=== PATIENT | female | born 1980 | race Hispanic/Latino ===

== ENCOUNTER 2022-05-10 06:20 | Inpatient (IN) | payer MEDICAID ==
--- NOTE | 2022-05-09 07:38 | History and Physical Report ---
History of Present Illness Date of examination: 05/04/22 Chief complaint: Previous delivery, desires repeat delivery History of present illness: IUP@39 weeks,AMA, BMI 47, GDM. Previous delivery, desires repeat delivery EDC Confirmation: 05/17/2022 Gestational Age: 12 3/7 weeks Past History : 2 Term Births: 1 Premature Births: 0 Living Children: 1 Para: 1 Mult. Births: 0 Prev : 1 Prev. attempt? 0 Aborta: 1 Elect. Ab: 1 Spont. Ab: 0 Ectopics: 0 # 1 Delivery date: 07/23/2020 Weeks Gestation: 40 Delivery type: Hours of labor: 30 Anesthesia type: general Delivery location: [facility] Sex: female weight: 9.69 Comments: No care/macrosomia/ failed induction/fever Past Medical History: Reviewed history from 07/20/2020 and no changes required: Obesity Past Surgical History: Reviewed history from 07/23/2020 and no changes required: (07/23/2020) Family History Summary: Reviewed history and no changes required: 11/05/2021 General Comments - FH: Bladder CA- father (passed) unknown CA - mothe (passed Social History: Reviewed history from 07/20/2020 and no changes required: Single Denies ETOH/smoking/drugs no pets Risk Factors: Smoked Tobacco Use: Never smoker Smokeless Tobacco Use: Never Counseled to Quit/Cut Down: yes Passive Smoke Exposure: no HIV High Risk Behavior: no Caffeine Use: 0 drinks per day Exercise: no Exercise Counseling: yes Seatbelt Use: preg-sexual assault counsellor % Family History Risk Factors: Family History of WA in 1 Female Relative Age < 65: no Family History of WA in 1 Male Relative Age < 55: no Dietary Counseling: yes Alcohol Use: no Drug Use: no Past Medical History Anesthesia Complications: negative Anemia: negative Autoimmune Disorder: negative Bleeding Disorder: negative Blood Transfusions: negative Breast Disease: negative Diabetes: negative Heart Disease: negative Hypertension: negative Hepatitis/Liver Disease: negative Kidney Disease/UTI: negative Neurologic/Epilepsy/Migraines: negative Phlebitis/Varicosities: negative Psychiatric: negative Pulmonary Disease/Asthma: negative Thyroid Disease: negative Surgery (Non-video camera operator): (07/23/2020) Abnormal PAP: negative WHITNEY Exposure: negative Infertility: negative Uterine Anomaly: negative Uterine Surgery (not C/S): negative Other Gynecologic Problems: negative Social Hx: Single Denies ETOH/smoking/drugs no pets Infection History Hx of STD: none HIV Risk Eval: no Hepatitis B Risk Eval: low risk Personal hx. of genital herpes: no Partner hx. of genital herpes: no Rash, Viral, or Febrile illness since last LMP? no Varicella/Chicken Pox Status: Previous Disease TB Risk: no Genetic History ADVANCED MATERNAL AGE Congenital Heart Defect: Mom: no Dad: no Ruby Disease: Mom: no Dad: no Thalassemia Mom: no Dad: no Neural Tube Defect Mom: no Dad: no Down's Syndrome Mom: no Dad: no Allen-Sachs Mom: no Dad: no Sickle Cell Disease/Trait Mom: no Dad: no Hemophilia Mom: no Dad: no Muscular Dystrophy Mom: no Dad: no Cystic Fibrosis Mom: no Dad: no [place] Chorea Mom: no Dad: no Mental Retardation Mom: no Dad: no Fragile X Mom: no Dad: no Other Genetic/Chromosomal Disorder Mom: no Dad: no Child w/other defect Mom: no Dad: no Enviromental Exposures Enviromental Exposures Reviewed Xray Exposure: no Medication, drug, or alcohol use since LMP: no Chemical/Other Exposure: no Exposure to Cat Liter: no Hx of Parvovirus (Fifth Disease): no Occupational Exposure to Children: none Current Allergies (reviewed today): No known allergies Physical Exam General appearance: well nourished, healthy appearing, no distress Chest/Lungs: respiratory effort normal, lungs clear to auscultation Cardiovascular: normal rate and rhythm Abdomen/GI: soft, nontender HBsAg Screen Negative Negative *1 RPR Non Reactive Non Reactive *2 Rubella Antibodies, IgG 1.43 index Immune >0.99 *3 Non-immune <0.90 Equivocal 0.90 - 0.99 Immune >0.99 ABO Grouping A *4 Rh Factor Positive *5 Please note: Prior records for this patient's ABO / Rh type are not available for additional verification. Antibody Screen Negative Negative *6 WBC [H] 11.2 x10E3/uL 3.4-10.8 *7 RBC 4.03 x10E6/uL 3.77-5.28 *8 Hemoglobin 11.8 g/dL 11.1-15.9 *9 Hematocrit 37.0 % 34.0-46.6 *10 MCV 92 fL 79-97 *11 MCH 29.3 pg 26.6-33.0 *12 MCHC 31.9 g/dL 31.5-35.7 *13 RDW 13.4 % 11.7-15.4 *14 Platelets 230 x10E3/uL 150-450 *15 Neutrophils 73 % Not Estab. *16 Lymphs 21 % Not Estab. *17 Monocytes 6 % Not Estab. *18 Eos 0 % Not Estab. *19 Basos 0 % Not Estab. *20 ! Immature Cells <No Reported Value> *21 Neutrophils (Absolute) [H] 8.1 x10E3/uL 1.4-7.0 *22 Lymphs (Absolute) 2.4 x10E3/uL 0.7-3.1 *23 Monocytes(Absolute) 0.6 x10E3/uL 0.1-0.9 *24 Eos (Absolute) 0.0 x10E3/uL 0.0-0.4 *25 Baso (Absolute) 0.0 x10E3/uL 0.0-0.2 *26 ! Immature Granulocytes 0 % Not Estab. *27 ! Immature Grans (Abs) 0.0 x10E3/uL 0.0-0.1 *28 ! NRBC <No Reported Value> *29 Hematology Comments: <No Reported Value> *30 Tests: (2) AFP Tetra ([id number]) ! Results Report *31 ! Test Results: *Screen Negative* *32 ! Gest. Age on Collection Date 16.9 WEEKS *33 ! Gestat. Age Based On IVETH *34 05/17/2022 ! Maternal Age [age] IVETH 42.1 yr *35 ! Race *36 ! Weight 319 lbs *37 ! Insulin Dep Diabetes No *38 ! Multiple Gestation No *39 ! AFP Value 32.1 ng/mL *40 ! AFP MoM 1.25 *41 ! hCG Value 98591 mIU/mL *42 ! hCG MoM 0.88 *43 ! uE3 Value 1.35 ng/mL *44 ! uE3 MoM 1.44 *45 ! SUZETTE Value 124.59 pg/mL *46 ! SUZETTE MoM 1.22 *47 ! OSBR Risk 1 IN 5576 *48 ! DSR (Second Trimester) 1 IN 578 *49 ! DSR (By Age) 1 IN 65 *50 ! T18 Risk Not increased *51 ! T18 (By Age) 1:254 *52 ! Interpretation NL42 *53 Interpretation: Screen Negative This result is screen negative for OSB, Down Syndrome and Trisomy 18. The AFP MoM and patient specific risks calculated are based on the gestational age and the clinical information provided. This test can identify up to 80% of open neural tube defects. Closed neural tube defects and some open defects may not be detected by this test. The combination of maternal age, AFP, hCG, uE3, and SUZETTE identifies 75-80% of Down Syndrome. The combination of maternal age, AFP, hCG and uE3 identifies 60% of Trisomy 18 pregnancies. The [employer] recommends amniocentesis be offered to women age 35 and older. Recalculations are not recommended when gestational dating by LMP and ultrasound are within 10 days. ! Comments: SPRCS *54 Mayra Peña, Ph.D., [facility] Director References: Available Upon Request. Multiples Of Median Cutoffs Abbreviation Definitions For AFP Elevations IDD- Insulin Dep Diabetes Browning 2.5 Black 2.8 OSBR- Open Spina Bifida IDD 2.0 Twins 4.5 Risk DSR Cutoff 1:270 DSR- Down Syndrome Risk T18 Cutoff 1:100 T18- Trisomy 18 Down Syndrome and Trisomy 18 screening are considered Investigational For further inquiries contact [facility] at [phone]. Tests: (3) HB Solu + Rflx Fra ([id number]) Hemoglobin (Hgb) Solubility Negative Negative *55 Tests: (4) HIV Ab/p24 Ag with Reflex ([id number]) HIV Ab/p24 Ag Screen Non Reactive Non Reactive *56 HIV Negative HIV-1/HIV-2 antibodies and HIV-1 p24 antigen were NOT detected. There is no laboratory evidence of HIV infection. Tests: (5) HCV Antibody reflex to LARRY ([id number]) HCV Ab <0.1 s/co ratio 0.0-0.9 *57 Tests: (6) Interpretation: ([id number]) ! Interpretation: SPRCS *58 Negative Not infected with HCV, unless recent infection is suspected or other evidence exists to indicate HCV infection. Effective January 03, 2022 HCV Antibody reflex to LARRY will be made non-orderable. This will affect any Custom Profile that includes [id number] HCV Antibody reflex to LARRY. [employer] offers order code [id number] HCV Antibody RFX to Quant PCR as an alternative. 04/19/2022 Chlamydia by LARRY Negative Negative *1 Gonococcus by LARRY Negative Negative *2 Trich vag by LARRY Negative Negative *3 Tests: (2) Strep Gp B LARRY ([id number]) ! Strep Gp B LARRY Negative Past History - Obstetrical History : 2 Medications and Allergies Allergies Allergy/AdvReac Type Severity Reaction Status Date / Time No Known Allergies Allergy Verified 05/03/22 16:53 Home Medications Medication Instructions Recorded Confirmed Last Taken Type Acetaminophen [Tylenol Extra 1,000 mg PO Q6HR PRN 05/03/22 05/03/22 Unknown History Strength] Aspirin [Aspirin BABY CHEW TAB] 81 mg PO QDAY 05/03/22 05/03/22 Unknown History Famotidine [Pepcid] 20 mg PO BID 05/03/22 05/03/22 Unknown History Vit-Fe Fumar-FA [ 1 tab PO QDAY 05/03/22 05/03/22 Unknown History Vitamin] Active Meds: Active Medications Citric Acid/Sodium Citrate (Bicitra Oral Liqd 30ml) 30 ml PO ONCE ONE Stop: 05/10/22 07:31 Famotidine (Famotidine 20 Mg/2 Ml Inj) 20 mg IV ONCE ONE Stop: 05/10/22 07:31 Lactated Ringer's (Lactated Ringers) 1,000 mls @ 2,250 mls/hr IV PREOP LARRY Stop: 05/11/22 05:57 Oxytocin/Sodium Chloride (Pitocin/Ns 30 Unit/500ml) 30 units in 500 mls @ 0 mls/hr IV TITR LARRY; Protocol Cefazolin Sodium (Ancef/Sterile Water 2 Gm/20 Ml) 2 gm in 20 mls @ 80 mls/hr IV PREOP NR; Protocol Stop: 05/10/22 23:45 Metoclopramide HCl (Metoclopramide 10 Mg/2 Ml Inj) 10 mg IV ONCE ONE Stop: 05/10/22 07:31 Results All other labs normal. Assessment and Plan - Patient Problems (1) 39 weeks gestation of Status: Acute (2) Previous delivery affecting Status: Acute Plan to address problem: Consent reviewed and signed . The risks and alternatives for this surgery were reviewed with the patient. She was informed of possible bleeding, infection, injury to bowel, bladder, ureters or other adjacent organs. The patient was instructed/informed the following: The normal length of hospital stay for this procedure. Nothing to eat or drink after midnight the evening prior to surgery. Pre-op instruction sheets given. Wound care instructions given. Infection precautions reviewed, patient to call for any signs or symptoms of infection. The usual discomforts associated with this procedure were detailed. Proper use of pain medicines was reviewed. Patient was given ample opportunity to have all her questions answered before signing informed consent (3) Gestational diabetes Status: Acute (4) BMI 45.0-49.9, adult Onset Date: ~07/20/20 Status: Chronic (5) Polyhydramnios in third trimester Status: Acute (6) Advanced maternal age (AMA), 40 years or greater Status: Chronic
[~2022-05-10 06:20] MED LIST: LACTATED RINGERS 1,000 ML IV SCH; OXYTOCIN DRIP 30 UNITS/500 ML BAG IV SCH
[2022-05-10] MEDS ORDERED: ceFAZolin/Water 2 GM/20 ML 2 GM/20 ML SYRINGE IV NR (06:30)
[2022-05-10] MEDS ORDERED: NALOXONE 0.4 MG/1 ML INJ IV PRN (06:36)
[2022-05-10] MEDS ORDERED: ONDANSETRON 4 MG/2 ML INJ IV PRN (06:36)
[2022-05-10] MEDS ORDERED: HYDROmorphone 1 MG/1 ML INJ IV PRN (06:36)
[2022-05-10] MEDS ORDERED: PROMETHAZINE 25 MG RECT SUPP PR PRN (06:36)
[2022-05-10] MEDS ORDERED: PROMETHAZINE 25 MG TAB PO PRN (06:36)
[2022-05-10] MEDS ORDERED: NalbUPHINE 10 MG/1 ML INJ IV PRN (06:36)
[2022-05-10] MEDS ORDERED: diphenhydrAMINE 50 MG/ML VIAL IV PRN (06:36)
[2022-05-10] MEDS ORDERED: KETOROLAC 30 MG/1 ML INJ ONE (06:50)
[2022-05-10] MEDS ORDERED: ONDANSETRON 4 MG/2 ML INJ ONE (06:50)
[2022-05-10] MEDS ORDERED: BUPIVACAINE/PF (0.5%) 5 MG/1 ML 30 ML VIAL INFILTRATI ONE (06:50)
[2022-05-10] MEDS ORDERED: FAMOTIDINE 20 MG/2 ML INJ IV ONE (07:30)
[2022-05-10] MEDS ORDERED: METOCLOPRAMIDE 10 MG/2 ML INJ IV ONE (07:30)
[2022-05-10] MEDS ORDERED: BICITRA ORAL LIQD 30ML PO ONE (07:30)
--- NOTE | 2022-05-10 07:44 | Event Note ---
Date: 05/10/22 Patient presented for surgery late, also has her 1 year-old child with her. Per policy according to [employer] real estate development manager, is unable to stay with patient with a one year old child. Patient states she's unable to make arrangements today for childrens club attendant. Will reschedule C/S garcía. Labor precautions given ,encourage FKC. Informed the office will call to reschedule garcía
[2022-05-15] MEDS ORDERED: LACTATED RINGERS 1,000 ML IV SCH (09:45)
[2022-05-16] MEDS ORDERED: BICITRA ORAL LIQD 30ML PO ONE (07:00)
[2022-05-16] MEDS ORDERED: FAMOTIDINE 20 MG/2 ML INJ IV ONE (07:00)
[2022-05-16] MEDS ORDERED: METOCLOPRAMIDE 10 MG/2 ML INJ IV ONE (07:00)
[2022-05-16] MEDS ORDERED: OXYTOCIN DRIP 30 UNITS/500 ML BAG IV SCH ×2 (08:00→18:00)
[2022-05-16 08:01] LABS: Basophils % (Auto) 0.3 % (0.0-1.8); Eosinophils % (Auto) 0.2 % (0.0-4.3); Hematocrit 33.8 % (30.3-42.9); Hemoglobin 10.7 gm/dl (10.1-14.3); Lymphocytes # (Auto) 1.7 K/mm3 (1.2-5.4); Lymphocytes % (Auto) 19.6 % (13.4-35.0); Mean Corpuscular HGB Conc 32 % (30-34); Mean Corpuscular Volume 91 fl (79-97); Monocytes # (Auto) 0.6 K/mm3 (0.0-0.8); Monocytes % (Auto) 6.7 % (0.0-7.3); Platelet Count 172 K/mm3 (140-440); Red Blood Count 3.72 M/mm3 (3.65-5.03)
[2022-05-16] MEDS ORDERED: CARBOPROST TROMETHAMINE 250 MCG/1 ML INJ IM ONE (08:51)
[2022-05-16] MEDS ORDERED: miSOPROStol 200 MCG TAB ONE (08:51)
[2022-05-16] MEDS ORDERED: METHYLERGONOVINE MALEATE 0.2 MG/ML VIAL IM ONE (08:51)
[2022-05-16] MEDS ORDERED: ePHEDrine SULFATE 50 MG/1 ML INJ ONE (09:47)
[2022-05-16] MEDS ORDERED: SODIUM CHLORIDE 0.9% 100 ML ONE (09:47)
[2022-05-16] MEDS ORDERED: PHENYLEPHRINE/NS 1,000 MCG/10 ML SYRINGE (OR USE) IV ONE (09:47)
[2022-05-16] MEDS ORDERED: ONDANSETRON 4 MG/2 ML INJ ONE (09:47)
[2022-05-16] MEDS ORDERED: BUPIVACAINE/PF (0.5%) 5 MG/1 ML 30 ML VIAL INFILTRATI ONE (09:47)
[2022-05-16] MEDS ORDERED: MORPHINE 4 MG/1 ML INJ IV PRN (12:07)
[2022-05-16] MEDS ORDERED: PROMETHAZINE 25 MG TAB PO PRN (12:07)
[2022-05-16] MEDS ORDERED: ONDANSETRON 4 MG/2 ML INJ IV PRN ×2 (12:07→18:00)
[2022-05-16] MEDS ORDERED: NALOXONE 0.4 MG/1 ML INJ IV PRN ×2 (12:07→18:00)
[2022-05-16] MEDS ORDERED: PROMETHAZINE 25 MG RECT SUPP PR PRN (12:07)
[2022-05-16] MEDS ORDERED: HYDROmorphone 1 MG/1 ML INJ IV PRN ×2 (12:07)
--- NOTE | 2022-05-16 12:09 | Anesthesia Day of Surgery ---
Anesthesia Day of Surgery - Day of Surgery Patient Examined: Yes Patient H&P Reviewed: Yes Patient is NPO: Yes Beta Blockers: No Cardiac Clearance: No Pulmonary Clearance: No Seb's Test: N/A
--- NOTE | 2022-05-16 12:09 | Anesthesia Consultation ---
Anesthesia Consult and Med Hx Date of service: 05/16/22 - Airway Anesthetic Teeth Evaluation: Good ROM Head & Neck: Adequate Mental/Hyoid Distance: Adequate Mallampati Class: Class II Intubation Access Assessment: Probably Good - Pulmonary Exam CTA: Yes - Cardiac Exam Cardiac Exam: RRR - Pre-Operative Health Status ASA Pre-Surgery Classification: ASA3 Proposed Anesthetic Plan: Spinal Nerve Block: Tony Tap - Pulmonary Hx Smoking: No Hx Asthma: No Hx Respiratory Symptoms: No SOB: No COPD: No Hx Pneumonia: No Hx Sleep Apnea: No - Cardiovascular System Hx Hypertension: No Hx Coronary Artery Disease: No Hx Heart Attack/AMI: No Hx Angina: No Hx Percutaneous Transluminal Coronary Angioplasty (PTCA): No Hx Cardia Arrhythmia: No Hx Pacemaker: No Hx Internal Defibrillator: No Hx Valvular Heart Disease: No Hx Heart Murmur: No Hx Peripheral Vascular Disease: No - Central Nervous System Hx Neuromuscular Disorder: No Hx Seizures: No CVA: No Hx Back Pain: Yes (DUE TO ) Hx Psychiatric Problems: Yes - Gastrointestinal Hx Ulcer: No Hx Gastroesophageal Reflux Disease: Yes - Endocrine Hx Renal Disease: No Hx End Stage Renal Disease: No Hx Cirrhosis: No Hx Liver Disease: No Hx Insulin Dependent Diabetes: No Hx Non-Insulin Dependent Diabetes: No Hx Thyroid Disease: No Hx Hypothyroidism: No Hx Hyperthyroidism: No - Hematic Hx Anemia: No Hx Sickle Cell Disease: No - Other Systems Hx Alcohol Use: No Hx Substance Use: No Hx Cancer: No Hx Obesity: Yes
--- NOTE | 2022-05-16 12:10 | Progress Note ---
Spinal Anesthesia Block - Spinal Anesthesia Block Start Time: 10:04 Stop Time: 10:10 Performed by:: JENNIFER MOREAU Procedure: The patient was placed in a sitting position on the OR table and monitors applied. A timeout was performed immediately prior to the start of the procedure. The patient was Prepped and draped in a sterile fashion and the skin was localized with 3 mL 1% lidocaine at L[4]-L[5] interspace. An introducer was placed into the back between L4-L5 and a 25g spinal needle was advanced into the intrathecal space until clear, free flowing CSF was observed. 1.8cc of 0.75% hyperbaric bupivacaine + 0.5mcg Precedex was injected into the intrathecal space and the spinal needle was removed. The patient tolerated the procedure well and there were no immediate complications noted.
--- NOTE | 2022-05-16 12:11 | Progress Note ---
Regional Anesthesia Block - Regional Anesthesia Block Start Time: 11:49 Stop Time: :56 Performed By:: JENNIFER MOREAU Procedure: During the pre-op interview the patient agreed to and signed a consent for a TAP block for post surgical pain management. After her C/S was completed a time out was performed prior to the start of the procedure. The Trans Abdominal Plane was identified bilaterally via ultrasound. The skin was prepped bilaterally with chlorhexidine and a 22g stimuplex needle was advanced to the area between the internal oblique muscle and the trans abdominal plane. Marcaine 0.25% 30mlwas injected under ultrasound guidance on the left and right side. Negative aspiration every 5mL, There was no change in the patients heart rate or rhythm and the patient tolerated the procedure well. No apparent complications were observed.
[2022-05-16] MEDS ORDERED: ACETAMINOPHEN 325 MG TAB PO PRN (18:00)
[2022-05-16] MEDS ORDERED: SIMETHICONE 80 MG CHEW TAB PO PRN (18:00)
[2022-05-16] MEDS ORDERED: WITCH HAZEL/ GLYCERIN PAD TP PRN (18:00)
[2022-05-16] MEDS ORDERED: LANOLIN/ZINC/DIMETHICONE (LANSINOH) 7 GM TP PRN (18:00)
[2022-05-16] MEDS ORDERED: LACTATED RINGERS 1000 ML IV SOLN IV SCH (18:15)
--- NOTE | 2022-05-16 18:55 | Operative Report ---
Operative Report Operative Report: Date of procedure: May 16, 2022 Pre-operative diagnosis: Intrauterine at 39 weeks with previous section, gestational diabetes and morbid obesity Post-operative diagnosis: Same Procedure name(s): Repeat low-transverse section Surgeon: Dean Lang MD Financial Services Rep: MARLY Anesthesia: Epidural EBL: Quantitative blood loss 778 cc Complications: None Findings: Patient with normal uterus tubes and ovaries bilaterally. Female infant weight 9 pounds 1 ounce Apgars 9 at 1 minute and 9 at 5 minutes Specimen(s): None Procedure: The patient was brought to the operating room. A spinal was placed without any complications. She was then placed in left lateral tilt. Abdomen was taped to lift up her panniculus. Then prepped and draped in the usual sterile manner. After testing for adequate anesthesia level, a Pfannenstiel incision was made through her previous scar. This incision was taken down to the fascia through a large amount of adipose tissue. The fascia was then nicked in the midline. This incision was extended out laterally with Motta scissors. The fascia was then sharply and bluntly from the underlying rectus muscles. The rectus muscles were bluntly and sharply . The peritoneum was then entered with the production machine operator's fingers. This incision was spread vertically with care not to damage the bladder below. The Ollie self-retaining tractor was then placed without any difficulty The bladder flap was then formed sharply and bluntly with Metzenbaum scissors. . A transverse incision was made in lower uterine segment. This incision was extended laterally with the operators fingers. The amniotic sac was then entered bluntly with the production machine operator's fingers. The infant was delivered from the vertex position with assistance of the vacuum. The infant was bulb suction on the mother's abdomen. Cord was double clamped and cut after minute. The was then passed to the nursery personnel who were in attendance. The above scores were given by the nursery personnel. The placenta was then bluntly removed. The uterus was then externalized and wiped clean the remaining products. The uterine incision was closed in layers. The first incision was closed in a locking manner using 0 Vicryl. This was followed by imbricating stitch also with 0 Vicryl. This closure was hemostatic. The bladder flap was copiously irrigated and found to be hemostatic. The pelvis was copiously irrigated and found to be hemostatic. The uterus was then placed back to the patient's abdomen. The retractors were removed. The rectus muscles were inspected and found to be hemostatic. The fascia was then closed in a running manner using 0 Vicryl. This incision was hemostatic irrigation Bovie. The space was closed with interrupted Vicryl sutures. The skin was reapproximated with 4-0 Vicryl subcuticularly. Dermabond was placed along the skin closure. The patient tolerated procedure well. Her urine was clear. The infant was admitted to the well baby nursery. The patient was accompanied to recovery room in good condition. Instrument count correct x3
[2022-05-16] MEDS: KETOROLAC 30 MG/1 ML INJ IV SCH (19:55)
[2022-05-16] MEDS: ceFAZolin/NS 1 GM/50 ML 1 GM/50 ML BAG IV SCH (20:07)
[2022-05-16] MEDS ORDERED: HYDROCORTISONE 25 MG RECTAL SUPP PR PRN (22:00)
[2022-05-16] MEDS ORDERED: MAGNESIUM HYDROXIDE (MOM) ORAL LIQD UDC PO PRN (22:00)
[2022-05-16] MEDS ORDERED: SENNOSIDES 8.6 MG TAB PO PRN (22:00)
[2022-05-16] MEDS: FAMOTIDINE 20 MG TAB PO SCH (23:50)
[2022-05-17 01:13] LABS: Hematocrit 33.9 % (30.3-42.9); Hemoglobin 10.7 gm/dl (10.1-14.3)
[2022-05-17] MEDS: KETOROLAC 30 MG/1 ML INJ IV SCH (03:14)
[2022-05-17] MEDS: ceFAZolin/NS 1 GM/50 ML 1 GM/50 ML BAG IV SCH (04:14)
[2022-05-17] MEDS ORDERED: IBUPROFEN 600 MG TAB PO PRN (06:00)
--- NOTE | 2022-05-17 08:50 | Progress Note ---
Assessment and Plan Continue post-op pathway, consider discharge tomorrow 05/18. Patient encouraged to ambulate and RN to apply abdominal binder. - Patient Problems (1) delivery delivered Current Visit: Yes Status: Acute (2) BMI 45.0-49.9, adult Onset Date: ~07/20/20 Current Visit: Yes Status: Chronic Subjective - Subjective Date of service: 05/17/22 Principal diagnosis: s/p repeat Patient reports: appetite normal, voiding normally, pain well controlled, flatus, ambulating normally : doing well, bottle feeding Objective - Vital Signs Latest vital signs: Vital Signs Temp Pulse Resp BP BP Pulse Ox Pulse Ox 05/17/22 05:19 98.7 F 78 18 124/61 96 05/17/22 00:58 98.6 F 87 18 140/76 97 05/16/22 20:50 99 05/16/22 20:20 97.5 F L 80 18 122/65 97 05/16/22 17:08 97.9 F 88 14 123/70 99 100 05/16/22 15:40 98.8 F 78 24 107/59 94 05/16/22 09:52 90 98 05/16/22 09:47 77 97 05/16/22 09:42 84 98 05/16/22 09:37 76 97 05/16/22 09:32 89 97 05/16/22 09:27 88 99 05/16/22 09:22 75 98 05/16/22 09:17 79 97 05/16/22 09:12 91 H 97 05/16/22 09:07 86 98 05/16/22 09:02 78 99 05/16/22 08:57 77 98 05/16/22 08:52 75 97 05/16/22 08:47 81 98 Intake and Output 05/16/22 05/17/22 05/17/22 23:59 07:59 15:59 Intake Total 50 240 Output Total 900 400 Balance -850 -160 Intake: IV 50 ANCEF/NS 1 GM/50 ML 1 gm 50 In 50 ml @ 100 mls/hr IV Q8H [facility] Rx#:[id number] Intake, Free Water 240 Output: Urine 900 400 Indwelling Catheter 500 Uretheral (Savage) 400 Void 400 Other: Total, Output Amount 400 400 - Exam Narrative Exam: POD #1, pt ambulating occasionally, passing flatus, regular diet this AM. Repo rts pain well controlled this morning. Bottle feeding. Incision clean and dry, well approximated. Breasts: Present: normal Cardiovascular: Present: Regular rate Lungs: Present: Clear to auscultation Abdomen: Present: normal appearance, soft, normal bowel sounds Uterus: Present: normal, firm Extremities: Present: normal Deep Tendon Reflex Grade: Normal +2 Incision: Present: normal, dry, intact - Labs Labs: Post Op H&H 10.3/33.7
--- NOTE | 2022-05-17 10:10 | Post Anesthesia Evaluation ---
- Post Anesthesia Evaluation Patient Participated: Yes Airway Patent: Yes Stable Respiratory Function: Yes Nausea/Vomiting: No Temp > 96.8F: Yes Pain Manageable: Yes Adequeate Hydration: Yes Anesthesia Complications: No Block Receding Appropriately: Yes Patient on Ventilator: No
[2022-05-17] MEDS: FERROUS SULFATE 325 MG TAB PO SCH (10:34)
[2022-05-17] MEDS: PRENATAL VIT27-FE FUMARATE-FOLIC ACID VIT TAB PO SCH (10:34)
[2022-05-17] MEDS: FAMOTIDINE 20 MG TAB PO SCH (10:34)
[2022-05-17] MEDS: oxyCODONE /ACETAMINOPHEN 5-325MG TAB PO PRN (10:34)
[2022-05-17] MEDS ORDERED: MEASLES, MUMPS & RUBELLA 12,500 UNIT/0.5 ML VACCINE SUB-Q ONE (13:00)
[2022-05-17] MEDS ORDERED: TETANUS,DIPH,PERTUSS(ACELL) VACCINE 0.5 ML SYRINGE IM ONE (13:00)
[2022-05-18] MEDS: FAMOTIDINE 20 MG TAB PO SCH ×2 (02:08→10:12)
[2022-05-18] MEDS: oxyCODONE /ACETAMINOPHEN 5-325MG TAB PO PRN ×2 (02:09→10:12)
--- NOTE | 2022-05-18 08:57 | Discharge Summary ---
Providers - Providers Date of Admission: 05/16/22 06:05 Date of discharge: 05/18/22 Attending physician: REINA DODGE MD 05/16/22 17:07 Consult to Rubber Factory Worker [CONS] Routine Reason For Exam: Primary care physician: ТАТЬЯНА HOOD Hospitalization Reason for admission: section Procedure: repeat low transverse Episiotomy: none Laceration: none Incision: normal, dry, intact Other procedures: none complications: none Discharge diagnosis: IUP at term delivered baby: female Hospital course: S: Patient doing well. Voiding, ambulating, passing flatus okay. O: VSS. H/H 10.7/33.9. Minimal bleeding noted. Incision open to air, intact, no s/sx of infection and no drainage noted. A: 42 y.o. s/p rpt @ term. In good condition . P: Discharge home with instructions. Pt to keep scheduled incision check in office. Condition at discharge: Good Disposition: 01 HOME / SELF CARE / HOMELESS Plan - Discharge Medications Prescriptions: Ferrous Sulfate [Feosol 325 MG tab] 325 mg PO BID #60 tablet Ibuprofen [Motrin] 800 mg PO TID PRN #30 tablet PRN Reason: Pain oxyCODONE /ACETAMINOPHEN [Percocet 5/325 mg] 1 tab PO Q6HR PRN #20 tablet PRN Reason: Pain - Provider Discharge Summary Activity: routine, no sex for 6 weeks, no heavy lifting 4 weeks, no strenuous exercise Diet: routine Instructions: routine Additional instructions: [] Smoking cessation referral if applicable(refer to patient education folder for contact #) [] Refer to [facility]'s [facility] Booklet Call your doctor immediately for: * Fever > 100.5 * Heavy vaginal bleeding ( >1 pad per hour) * Severe persistent headache * Shortness of breath * Reddened, hot, painful area to leg or breast * Drainage or odor from incision. * Keep incision clean and dry at all times and follow doctor's instructions regarding bathing/showering - Follow up plan Follow up: ТАТЬЯНА HOOD MD [Primary Care Provider] - 7 Days (- Congratulations on the of your baby girl! - Thank you for allowing us to take care of you! - Please keep your scheduled incision check in the office in 1 week. If you do not have one scheduled, please call the office. - If you have any questions or concerns after discharge, please do not hesitate to call us at . )
[2022-05-18] MEDS: PRENATAL VIT27-FE FUMARATE-FOLIC ACID VIT TAB PO SCH (10:12)
[2022-05-18] MEDS: FERROUS SULFATE 325 MG TAB PO SCH (10:12)
[2022-05-18 17:02] VITALS: BP 146/81
== END 2022-05-18 16:45 | disposition home or self-care (01) | DRG 765 ==
LOC: UNDOADMIN 06:20 → APU 06:20 → OB 05-16 16:29
PROVIDERS: ADMIT Obstetrics & Gynecology; ATTEND Student in an Organized Health Care Education/Training Program
PROC: 10D00Z1 Extraction of Products of Conception, Low, Open Approach (ICD-10-PCS; principal; 2022-05-16)
PROC: 3E0T3BZ Introduction of Anesthetic Agent into Peripheral Nerves and Plexi, Percutaneous Approach (ICD-10-PCS; 2022-05-16)
PROC: 3E0234Z Introduction of Serum, Toxoid and Vaccine into Muscle, Percutaneous Approach (ICD-10-PCS; 2022-05-17)
DX: O34.211 Maternal care for low transverse scar from previous cesarean delivery (principal); O40.3XX0 Polyhydramnios, third trimester, not applicable or unspecified; O24.424 Gestational diabetes mellitus in childbirth, insulin controlled; O99.214 Obesity complicating childbirth; E66.01 Morbid (severe) obesity due to excess calories; Z37.0 Single live birth; Z3A.39 39 weeks gestation of pregnancy; Z23 Encounter for immunization; Z20.822 Contact with and (suspected) exposure to COVID-19; Z79.82 Long term (current) use of aspirin; O99.62 Diseases of the digestive system complicating childbirth; K21.9 Gastro-esophageal reflux disease without esophagitis
CPT/HCPCS: 36415; 82962; 85014; 85018; 85025; 86850; 86900; 86901; G0378; J3490; J7121; J0690; J1170; J1885; J2370; J2405; J2590; J2765; J7120; U0003

== ENCOUNTER 2022-05-23 15:05 | Emergency (ER) | payer MEDICAID ==
[2022-05-23 17:38] LABS: Basophils % (Auto) 0.4 % (0.0-1.8); Eosinophils % (Auto) 0.7 % (0.0-4.3); Hematocrit 34.2 % (30.3-42.9); Hemoglobin 11.2 gm/dl (10.1-14.3); Lymphocytes # (Auto) 1.7 K/mm3 (1.2-5.4); Lymphocytes % (Auto) 24.6 % (13.4-35.0); Mean Corpuscular HGB Conc 33 % (30-34); Mean Corpuscular Volume 91 fl (79-97); Monocytes # (Auto) 0.4 K/mm3 (0.0-0.8); Monocytes % (Auto) 6.3 % (0.0-7.3); Platelet Count 197 K/mm3 (140-440); Red Blood Count 3.78 M/mm3 (3.65-5.03); Red Cell Distribution Width 16.4 % (13.2-15.2)
[2022-05-23 17:57] LABS: Alanine Aminotransferase 19 units/L (7-56); Albumin 3.6 g/dL (3.9-5); Blood Urea Nitrogen 17 mg/dL (7-17); Hemolysis Index 0
[2022-05-23 18:01] LABS: BUN/Creatinine Ratio 28
[2022-05-23] MEDS ORDERED: KETOROLAC 10 MG TAB PO ONE (21:51)
--- NOTE | 2022-05-23 22:33 | Cat Scan Report ---
CT abdomen pelvis wo con INDICATION / CLINICAL INFORMATION: abd pain, leaking c- section incision. TECHNIQUE: Axial CT imaging of abdomen and pelvis was obtained without contrast. Coronal and sagittal reformatte d imaging obtained and reviewed. All CT scans at this location are performed using CT dose reduction for ALARA by means of automated exposure control. COMPARISON: None available. FINDINGS: CT abdomen without contrast demonstrates grossly normal appearance of the liver, spleen, pancreas, ki dneys, and adrenal glands. Gallbladder is mildly distended but not obviously inflamed. There are a fe w punctate calculi in the lower pole calyx of the left kidney. No hydronephrosis. CT pelvis without contrast demonstrates an enlarged uterus. Patient appears to be accounti ng for uterine enlargement. No pelvic mass, free fluid, or focal inflammatory process is noted. There is focal diffuse inflammatory change throughout the lower abdominal subcutaneous tissue consist ent with postoperative changes from . No focal fluid collection. I cannot exclude the possib ility of cellulitis given the appearance and clinical correlation is recommended. GI tract is grossly unremarkable. A normal appendix is present in the right lower quadrant. Visualized lung bases are clear. No acute osseous abnormality is noted. IMPRESSION: 1. Inflammatory changes seen throughout the subcutaneous tissue of the lower abdominal wall correspon ding to site of surgical scar related to cyst or infection. There is no focal fluid collection, no ab scess. Findings could be related to cellulitis and clinical correlation is recommended. 2. Uterine enlargement consistent with status. Without IV contrast, the endometrium cannot be evaluated. 3. Left nephrolithiasis. No hydronephrosis. Signer Name: Lorna Bunn MD Signed: 05/23/2022 10:28 PM Workstation Name: [id number]
[2022-05-23] MEDS ORDERED: cephALEXin 500 MG CAP PO ONE (22:37)
--- NOTE | 2022-05-23 23:05 | Emergency Department Report ---
- General Chief complaint: Pain General Stated complaint: STITCHES LEAKING Time Seen by Provider: 05/23/22 21:32 Source: patient Mode of arrival: Ambulatory Limitations: No Limitations - History of Present Illness Initial comments: 42-year-old white female with a past medical history of GERD presents to the emergency department for evaluation of leaking from incision. Patient states that she is 1 week oh and noticed some drainage from her incision earlier this morning that has gotten progressively worse. She states that she is also having some abdominal pain but cannot tell if the pain is just from the or from her new problem. She denies fever. MD complaint: other (Drainage from incision) -: This morning Severity: moderate Severity scale (0 -10): 6 Quality: aching Consistency: constant Associated symptoms: denies other symptoms Treatments Prior to Arrival: none - Related Data Home Medications Medication Instructions Recorded Confirmed Last Taken Acetaminophen [Tylenol Extra 1,000 mg PO Q6HR PRN 05/03/22 05/03/22 Unknown Strength] Aspirin [Aspirin BABY CHEW TAB] 81 mg PO QDAY 05/03/22 05/03/22 Unknown Famotidine [Pepcid] 20 mg PO BID 05/03/22 05/03/22 Unknown Vit-Fe Fumar-FA [ 1 tab PO QDAY 05/03/22 05/03/22 Unknown Vitamin] Previous Rx's Medication Instructions Recorded Last Taken Type Ferrous Sulfate [Feosol 325 MG tab] 325 mg PO BID #60 tablet 05/16/22 Unknown Rx Ibuprofen [Motrin] 800 mg PO TID PRN #30 tablet 05/16/22 Unknown Rx oxyCODONE /ACETAMINOPHEN [Percocet 1 tab PO Q6HR PRN #20 tablet 05/16/22 Unknown Rx 5/325 mg] cephALEXin [Keflex] 500 mg PO Q12HR 7 Days #14 cap 05/23/22 Unknown Rx Allergies Allergy/AdvReac Type Severity Reaction Status Date / Time No Known Allergies Allergy Verified 05/03/22 16:53 Abscess Boil HPI - HPI Chief Complaint: Pain General Stated Complaint: STITCHES LEAKING Time Seen by Provider: 05/23/22 21:32 Home Medications: Home Medications Medication Instructions Recorded Confirmed Last Taken Acetaminophen [Tylenol Extra 1,000 mg PO Q6HR PRN 05/03/22 05/03/22 Unknown Strength] Aspirin [Aspirin BABY CHEW TAB] 81 mg PO QDAY 05/03/22 05/03/22 Unknown Famotidine [Pepcid] 20 mg PO BID 05/03/22 05/03/22 Unknown Vit-Fe Fumar-FA [ 1 tab PO QDAY 05/03/22 05/03/22 Unknown Vitamin] Previous Rx's Medication Instructions Recorded Last Taken Type Ferrous Sulfate [Feosol 325 MG tab] 325 mg PO BID #60 tablet 05/16/22 Unknown Rx Ibuprofen [Motrin] 800 mg PO TID PRN #30 tablet 05/16/22 Unknown Rx oxyCODONE /ACETAMINOPHEN [Percocet 1 tab PO Q6HR PRN #20 tablet 05/16/22 Unknown Rx 5/325 mg] cephALEXin [Keflex] 500 mg PO Q12HR 7 Days #14 cap 05/23/22 Unknown Rx Allergies/Adverse Reactions: Allergies Allergy/AdvReac Type Severity Reaction Status Date / Time No Known Allergies Allergy Verified 05/03/22 16:53 ED Review of Systems ROS: Stated complaint: STITCHES LEAKING Other details as noted in HPI Comment: All other systems reviewed and negative Constitutional: denies: chills, fever Respiratory: denies: shortness of breath Cardiovascular: denies: chest pain, palpitations Gastrointestinal: abdominal pain. denies: nausea, vomiting Musculoskeletal: denies: back pain Skin: denies: rash, lesions Neurological: denies: headache, weakness ED Past Medical Hx - Past Medical History Hx Hypertension: No Hx Heart Attack/AMI: No Hx Congestive Heart Failure: No Hx Diabetes: No Hx Deep Vein Thrombosis: No Hx Liver Disease: No Hx Renal Disease: No Hx Sickle Cell Disease: No Hx Seizures: No Hx Asthma: No Hx COPD: No Hx HIV: No - Surgical History Hx Pacemaker: No Hx Internal Defibrillator: No - Social History Smoking Status: Never Smoker - Medications Home Medications: Home Medications Medication Instructions Recorded Confirmed Last Taken Type Acetaminophen [Tylenol Extra 1,000 mg PO Q6HR PRN 05/03/22 05/03/22 Unknown History Strength] Aspirin [Aspirin BABY CHEW TAB] 81 mg PO QDAY 05/03/22 05/03/22 Unknown History Famotidine [Pepcid] 20 mg PO BID 05/03/22 05/03/22 Unknown History Vit-Fe Fumar-FA [ 1 tab PO QDAY 05/03/22 05/03/22 Unknown History Vitamin] Ferrous Sulfate [Feosol 325 MG tab] 325 mg PO BID #60 tablet 05/16/22 Unknown Rx Ibuprofen [Motrin] 800 mg PO TID PRN #30 tablet 05/16/22 Unknown Rx oxyCODONE /ACETAMINOPHEN [Percocet 1 tab PO Q6HR PRN #20 tablet 05/16/22 Unknown Rx 5/325 mg] cephALEXin [Keflex] 500 mg PO Q12HR 7 Days #14 cap 05/23/22 Unknown Rx ED Physical Exam - General Limitations: No Limitations General appearance: alert, in no apparent distress - Head Head exam: Present: atraumatic, normocephalic - Eye Eye exam: Present: normal appearance. Absent: conjunctival injection, periorbital swelling, periorbital tenderness - Neck Neck exam: Present: normal inspection - Respiratory Respiratory exam: Present: normal lung sounds bilaterally. Absent: respiratory distress, wheezes, rales, rhonchi, stridor, chest wall tenderness - Cardiovascular Cardiovascular Exam: Present: regular rate, normal heart sounds - GI/Abdominal GI/Abdominal exam: Present: soft, tenderness (Bilateral lower), normal bowel sounds. Absent: distended - Extremities Exam Extremities exam: Present: normal inspection, normal capillary refill - Back Exam Back exam: Present: normal inspection. Absent: CVA tenderness (R), CVA tenderness (L) - Neurological Exam Neurological exam: Present: alert, oriented X3, normal gait - Psychiatric Psychiatric exam: Present: normal affect, normal mood - Skin Skin exam: Present: warm, dry, normal color - Expanded Skin Exam Expanded 1 - incision noted to be closed with glue only with several areas open and draining sanguinous drainage. Incision noted to have some erythema around it and tender to touch. ED Course Vital Signs 05/23/22 05/23/22 16:09 22:21 Temperature 98.5 F Pulse Rate 74 Respiratory 18 16 Rate Blood Pressure 135/69 [Left] O2 Sat by Pulse 99 Oximetry ED Medical Decision Making - Lab Data Result diagrams: 05/23/22 17:09 05/23/22 17:09 - Radiology Data Radiology results: report reviewed, image reviewed - Medical Decision Making 42-year-old white female with a past medical history of GERD presents to the emergency department for evaluation of leaking from incision. Patient states that she is 1 week oh and noticed some drainage from her incision earlier this morning that has gotten progressively worse. She states that she is also having some abdominal pain but cannot tell if the pain is just from the or from her new problem. She denies fever. CT scanning of abdomen and pelvis without contrast unremarkable, and physical exam most consistent with cellulitis around incision. Patient will be treated with 7-day course of Keflex and advised to follow-up with her [facility] for further evaluation and management. She is advised to return to the emergency department as needed. She verbalizes understanding of and agreement with plan of care. Critical care attestation.: If time is entered above; I have spent that time in minutes in the direct care of this critically ill patient, excluding procedure time. ED Disposition Clinical Impression: Cellulitis Qualifiers: Site of cellulitis: trunk Site of cellulitis of trunk: abdominal wall Qualified Code(s): L03.311 - Cellulitis of abdominal wall Disposition: HOME / SELF CARE / HOMELESS Is pt being admited?: No Does the pt Need Aspirin: No Condition: Stable Instructions: Cellulitis, Adult, [id number] Additional Instructions: Take medications as prescribed. Follow-up with your [facility] EVENT ASSIST[facility] for further evaluation and management. Return to the emergency department as needed. Prescriptions: cephALEXin [Keflex] 500 mg PO Q12HR 7 Days #14 cap Referrals: BETY COREY MD [Staff Physician] - 3-5 Days Time of Disposition: 23:07
[2022-05-23 23:25] VITALS: BP 133/79
== END 2022-05-23 23:27 | disposition home or self-care (01) ==
LOC: ED 15:05
DX: O86.00 Infection of obstetric surgical wound, unspecified (principal)
CPT/HCPCS: 36415; 74176; 80053; 85025; 99284